=== PATIENT | female | born 1960 | race African-American/Black ===

== ENCOUNTER 2024-05-08 10:05 | Inpatient (IN) | payer OTHER ==
[2024-05-08] MEDS ORDERED: Ondansetron ODT 4 MG TAB PO PRN (13:35)
[2024-05-08] MEDS ORDERED: Dextrose 50% Abboject 50 ML SYRINGE SLOW IVP PRN (13:39)
[2024-05-08] MEDS ORDERED: Glucagon 1 MG/ML KIT IM PRN (13:39)
[2024-05-08] MEDS: Spironolactone 25 MG TAB PO SCH (20:34)
[2024-05-08] MEDS: Atorvastatin Calcium 20 MG TAB PO SCH (20:34)
[2024-05-08] MEDS: Sacubitril 24MG/Valsartan 26 MG TAB PO SCH (20:34)
[2024-05-08] MEDS ORDERED: Famotidine 20 MG TAB PO SCH (21:00)
[2024-05-09] MEDS: Insulin Lispro 100 UNIT/ML 10 ML VIAL SC PRN (05:39)
[2024-05-09] MEDS: FLU (Fluad Triv) TS24-25 (65UP)/MF59C/PF 45 MCG/0.5 ML Syringe IM ONE (08:21)
[2024-05-09] MEDS: Enoxaparin 40 MG (0.4 mL) SYRINGE SC SCH (08:22)
[2024-05-09] MEDS: Polyethylene Glycol 3350 17 GM Packet PO SCH (08:22)
[2024-05-09] MEDS: Lantus 1000 UNITS/10 ML VIAL SC SCH (08:22)
[2024-05-09] MEDS: Aspirin 81 mg Enteric Coated Tablet PO SCH (08:23)
[2024-05-09] MEDS: Pantoprazole DR 40 MG TAB PO SCH (08:23)
[2024-05-09] MEDS: Clopidogrel Bisulfate 75 MG TAB PO SCH (08:23)
[2024-05-09] MEDS: Hydrochlorothiazide 25 MG TAB PO SCH (08:23)
[2024-05-09] MEDS: Dapagliflozin Propanediol 10 MG TAB PO SCH (08:23)
[2024-05-09] MEDS: Cholecalciferol (Vitamin D3) 400 UNITS TAB PO SCH (08:23)
[2024-05-09] MEDS: Potassium Chloride 20 MEQ TAB PO SCH (08:23)
[2024-05-09] MEDS: Acetaminophen 325 MG TAB PO PRN (10:15)
[2024-05-09 17:32] LABS: #Eosinophils 0.2 thou/uL (0.0-0.7); #Lymphocytes 2.7 thou/uL (1.20-3.40); #Monocytes 0.6 thou/uL (0.11-0.59); #Neutrophils 2.2 thou/uL (1.40-6.50); %Basophils 0.7 % (0.0-1.0); %Eosinophils 2.9 % (0.0-10.0); %Lymphocytes 46.5 % (21.0-51.0); %Monocytes 10.8 % (0.0-10.0); %Neutrophils 39.2 % (42.0-75.0); Hematocrit 40.4 % (36.0-47.0); Hemoglobin 12.2 g/dL (12.0-16.0); Mean Corpuscular HGB CONC 30.2 g/dL (32.0-36.0); Mean Corpuscular Hemoglobin 27.9 pg (27.0-31.0); Mean Corpuscular Volume 92.2 fl (78.0-98.0); Mean Platelet Volume 8.4 fL (7.4-10.4); Platelet Count 358 10x3/uL (130-400); RBC Distribution Width 13.4 % (11.5-14.5); Red Blood Cell (RBC) Count 4.38 mill/uL (4.20-5.40); White Blood Cell (WBC) Count 5.7 10x3/uL (4.8-10.8)
[2024-05-09 17:47] LABS: ALT (SGPT) 25 U/L (8-55); AST (SGOT) 22 U/L (5-34); Albumin 2.3 g/dL (3.4-4.8); Alkaline Phosphatase 79 U/L (40-110); Anion Gap 14 mmol/L (10-20); BUN (Urea Nitrogen) 34 mg/dL (9.8-20.1); Bilirubin, Total 0.2 mg/dL (0.2-1.2); Calc. Creatinine Clearance 42 mL/min (70-130); Calcium 9.1 mg/dL (7.8-10.44); Carbon Dioxide 24 mmol/L (23-31); Chloride 103 mmol/L (98-107); Estimated GFR 31; Globulin 4.6 g/dL (2.4-3.5); Glucose 123 mg/dL (80-115); Potassium 4.3 mmol/L (3.5-5.1); Protein, Total 6.9 g/dL (5.8-8.1); Sodium 137 mmol/L (136-145)
[2024-05-09] MEDS: Nystatin 500,000 UNITS/5 ML UDCUP SSW SCH (17:58)
[2024-05-10] MEDS: Enoxaparin 30 MG (0.3 mL) SYRINGE SC SCH (08:52)
[2024-05-11 09:58] LABS: ALT (SGPT) 28 U/L (8-55); AST (SGOT) 21 U/L (5-34); Albumin 2.6 g/dL (3.4-4.8); Alkaline Phosphatase 89 U/L (40-110); Anion Gap 15 mmol/L (10-20); BUN (Urea Nitrogen) 33 mg/dL (9.8-20.1); Bilirubin, Total 0.2 mg/dL (0.2-1.2); Calc. Creatinine Clearance 42 mL/min (70-130); Calcium 9.7 mg/dL (7.8-10.44); Carbon Dioxide 20 mmol/L (23-31); Chloride 103 mmol/L (98-107); Estimated GFR 30; Globulin 5.2 g/dL (2.4-3.5); Glucose 225 mg/dL (80-115); Potassium 3.9 mmol/L (3.5-5.1); Protein, Total 7.8 g/dL (5.8-8.1); Sodium 134 mmol/L (136-145)
[2024-05-11] MEDS: Insulin Lispro 100 UNIT/ML 10 ML VIAL SC PRN (20:52)
[2024-05-12] MEDS: Sacubitril 24MG/Valsartan 26 MG TAB PO SCH (09:16)
[2024-05-12] MEDS: Lantus 1000 UNITS/10 ML VIAL SC SCH (09:38)
[2024-05-12 09:52] LABS: ALT (SGPT) 25 U/L (8-55); AST (SGOT) 17 U/L (5-34); Albumin 2.6 g/dL (3.4-4.8); Alkaline Phosphatase 81 U/L (40-110); Anion Gap 12 mmol/L (10-20); BUN (Urea Nitrogen) 38 mg/dL (9.8-20.1); Bilirubin, Total 0.2 mg/dL (0.2-1.2); Calc. Creatinine Clearance 37 mL/min (70-130); Calcium 9.6 mg/dL (7.8-10.44); Carbon Dioxide 20 mmol/L (23-31); Chloride 105 mmol/L (98-107); Estimated GFR 26; Globulin 4.7 g/dL (2.4-3.5); Glucose 243 mg/dL (80-115); Potassium 4.1 mmol/L (3.5-5.1); Protein, Total 7.3 g/dL (5.8-8.1); Sodium 133 mmol/L (136-145)
[2024-05-13 07:08] LABS: ALT (SGPT) 25 U/L (8-55); AST (SGOT) 18 U/L (5-34); Albumin 2.7 g/dL (3.4-4.8); Alkaline Phosphatase 85 U/L (40-110); Anion Gap 16 mmol/L (10-20); BUN (Urea Nitrogen) 42 mg/dL (9.8-20.1); Bilirubin, Total 0.2 mg/dL (0.2-1.2); Calc. Creatinine Clearance 35 mL/min (70-130); Calcium 9.4 mg/dL (7.8-10.44); Carbon Dioxide 20 mmol/L (23-31); Chloride 106 mmol/L (98-107); Estimated GFR 24; Globulin 4.3 g/dL (2.4-3.5); Glucose 235 mg/dL (80-115); Sodium 138 mmol/L (136-145)
[2024-05-13] MEDS: Polyethylene Glycol 3350 17 GM Packet PO PRN (08:57)
[2024-05-13] MEDS: Lantus 1000 UNITS/10 ML VIAL SC SCH (08:58)
[2024-05-13] MEDS: Bisacodyl 5 MG TAB PO SCH ×2 (14:32→14:45)
[2024-05-14] MEDS: Lantus 1000 UNITS/10 ML VIAL SC SCH (08:22)
[2024-05-14] MEDS: Bisacodyl 5 MG TAB PO SCH (08:23)
[2024-05-14 10:26] LABS: Anion Gap 15 mmol/L (10-20); BUN (Urea Nitrogen) 40 mg/dL (9.8-20.1); Calc. Creatinine Clearance 40 mL/min (70-130); Calcium 9.7 mg/dL (7.8-10.44); Carbon Dioxide 20 mmol/L (23-31); Chloride 104 mmol/L (98-107); Estimated GFR 29; Glucose 242 mg/dL (80-115); Potassium 3.8 mmol/L (3.5-5.1); Sodium 135 mmol/L (136-145)
[2024-05-14] MEDS: Fluconazole 100 MG TAB PO SCH (13:25)
[2024-05-14] MEDS: Bisacodyl 10 MG SUPP PR PRN (19:01)
[2024-05-14] MEDS: Senokot S 8.6-50 MG TAB PO SCH (20:43)
[2024-05-15 07:58] LABS: #Eosinophils 0.1 thou/uL (0.0-0.7); #Lymphocytes 2.1 thou/uL (1.20-3.40); #Monocytes 0.6 thou/uL (0.11-0.59); #Neutrophils 3.9 thou/uL (1.40-6.50); %Basophils 0.6 % (0.0-1.0); %Eosinophils 2.2 % (0.0-10.0); %Lymphocytes 31.3 % (21.0-51.0); %Monocytes 9.1 % (0.0-10.0); %Neutrophils 56.9 % (42.0-75.0); Hematocrit 41.2 % (36.0-47.0); Hemoglobin 12.5 g/dL (12.0-16.0); Mean Corpuscular HGB CONC 30.4 g/dL (32.0-36.0); Mean Corpuscular Hemoglobin 27.9 pg (27.0-31.0); Mean Corpuscular Volume 91.7 fl (78.0-98.0); Mean Platelet Volume 9.6 fL (7.4-10.4); Platelet Count 320 10x3/uL (130-400); RBC Distribution Width 13.5 % (11.5-14.5); White Blood Cell (WBC) Count 6.8 10x3/uL (4.8-10.8)
[2024-05-15] MEDS: Polyethylene Glycol 3350 17 GM Packet PO SCH (08:10)
[2024-05-15 08:18] LABS: ALT (SGPT) 16 U/L (8-55); AST (SGOT) 9 U/L (5-34); Albumin 2.6 g/dL (3.4-4.8); Alkaline Phosphatase 84 U/L (40-110); Anion Gap 14 mmol/L (10-20); BUN (Urea Nitrogen) 47 mg/dL (9.8-20.1); Bilirubin, Total 0.2 mg/dL (0.2-1.2); Calc. Creatinine Clearance 40 mL/min (70-130); Calcium 9.8 mg/dL (7.8-10.44); Carbon Dioxide 20 mmol/L (23-31); Chloride 107 mmol/L (98-107); Estimated GFR 29; Globulin 4.6 g/dL (2.4-3.5); Glucose 200 mg/dL (80-115); Magnesium 2.3 mg/dL (1.6-2.6); Potassium 3.3 mmol/L (3.5-5.1); Protein, Total 7.2 g/dL (5.8-8.1); Sodium 138 mmol/L (136-145)
[2024-05-15] MEDS ORDERED: Polyethylene Glycol 3350 17 GM Packet PO PRN (08:31)
[2024-05-15] MEDS ORDERED: Senokot S 8.6-50 MG TAB PO PRN (08:31)
[2024-05-15] MEDS: Fluconazole 100 MG TAB PO SCH (08:42)
[2024-05-15] MEDS: Potassium Chloride 10 MEQ TAB PO SCH (09:33)
[2024-05-15] MEDS: Lantus 1000 UNITS/10 ML VIAL SC SCH ×2 (13:14→13:18)
[2024-05-16 07:01] LABS: #Eosinophils 0.2 thou/uL (0.0-0.7); #Lymphocytes 2.1 thou/uL (1.20-3.40); #Monocytes 0.5 thou/uL (0.11-0.59); #Neutrophils 2.8 thou/uL (1.40-6.50); %Basophils 0.6 % (0.0-1.0); %Eosinophils 3.1 % (0.0-10.0); %Lymphocytes 37.5 % (21.0-51.0); %Monocytes 8.1 % (0.0-10.0); %Neutrophils 50.6 % (42.0-75.0); Hematocrit 39.8 % (36.0-47.0); Hemoglobin 12.5 g/dL (12.0-16.0); Mean Corpuscular HGB CONC 31.3 g/dL (32.0-36.0); Mean Corpuscular Hemoglobin 28.3 pg (27.0-31.0); Mean Corpuscular Volume 90.3 fl (78.0-98.0); Mean Platelet Volume 9.5 fL (7.4-10.4); Platelet Count 313 10x3/uL (130-400); RBC Distribution Width 13.3 % (11.5-14.5); Red Blood Cell (RBC) Count 4.41 mill/uL (4.20-5.40); White Blood Cell (WBC) Count 5.5 10x3/uL (4.8-10.8)
[2024-05-16 07:19] LABS: Anion Gap 14 mmol/L (10-20); BUN (Urea Nitrogen) 45 mg/dL (9.8-20.1); Calc. Creatinine Clearance 39 mL/min (70-130); Calcium 9.7 mg/dL (7.8-10.44); Carbon Dioxide 17 mmol/L (23-31); Chloride 111 mmol/L (98-107); Estimated GFR 29; Glucose 209 mg/dL (80-115); Potassium 3.7 mmol/L (3.5-5.1); Sodium 138 mmol/L (136-145)
[2024-05-16 12:08] LABS: Hemoglobin A1c 6.4 % (4.0-6.0)
[2024-05-17 11:42] LABS: #Basophils 0.1 thou/uL (0.0-0.2); #Eosinophils 0.1 thou/uL (0.0-0.7); #Monocytes 0.4 thou/uL (0.11-0.59); #Neutrophils 2.6 thou/uL (1.40-6.50); %Basophils 1.4 % (0.0-1.0); %Eosinophils 2.9 % (0.0-10.0); %Lymphocytes 38.6 % (21.0-51.0); %Monocytes 7.9 % (0.0-10.0); %Neutrophils 49.2 % (42.0-75.0); Hematocrit 42.2 % (36.0-47.0); Hemoglobin 13.1 g/dL (12.0-16.0); Mean Corpuscular HGB CONC 30.9 g/dL (32.0-36.0); Mean Corpuscular Hemoglobin 28.1 pg (27.0-31.0); Mean Corpuscular Volume 90.9 fl (78.0-98.0); Mean Platelet Volume 9.3 fL (7.4-10.4); Platelet Count 276 10x3/uL (130-400); RBC Distribution Width 13.7 % (11.5-14.5); Red Blood Cell (RBC) Count 4.65 mill/uL (4.20-5.40); White Blood Cell (WBC) Count 5.2 10x3/uL (4.8-10.8)
[2024-05-17 11:44] VITALS: BMI 86.9
[2024-05-17 11:57] LABS: ALT (SGPT) 17 U/L (8-55); AST (SGOT) 12 U/L (5-34); Albumin 2.6 g/dL (3.4-4.8); Alkaline Phosphatase 85 U/L (40-110); Anion Gap 14 mmol/L (10-20); BUN (Urea Nitrogen) 41 mg/dL (9.8-20.1); Bilirubin, Total 0.2 mg/dL (0.2-1.2); Calc. Creatinine Clearance 41 mL/min (70-130); Calcium 9.6 mg/dL (7.8-10.44); Carbon Dioxide 17 mmol/L (23-31); Chloride 112 mmol/L (98-107); Estimated GFR 30; Globulin 4.8 g/dL (2.4-3.5); Glucose 175 mg/dL (80-115); Potassium 4.4 mmol/L (3.5-5.1); Protein, Total 7.4 g/dL (5.8-8.1); Sodium 139 mmol/L (136-145)
[2024-05-20 04:22] VITALS: BMI 74.0
[2024-05-20 07:40] LABS: ALT (SGPT) 15 U/L (8-55); AST (SGOT) 9 U/L (5-34); Albumin 2.7 g/dL (3.4-4.8); Alkaline Phosphatase 85 U/L (40-110); Anion Gap 14 mmol/L (10-20); BUN (Urea Nitrogen) 40 mg/dL (9.8-20.1); Bilirubin, Total 0.2 mg/dL (0.2-1.2); Calc. Creatinine Clearance 43 mL/min (70-130); Calcium 9.9 mg/dL (7.8-10.44); Carbon Dioxide 17 mmol/L (23-31); Chloride 115 mmol/L (98-107); Estimated GFR 33; Globulin 4.2 g/dL (2.4-3.5); Glucose 205 mg/dL (80-115); Protein, Total 6.9 g/dL (5.8-8.1); Sodium 142 mmol/L (136-145)
[2024-05-21] MEDS: Spironolactone 25 MG TAB PO SCH (07:34)
[2024-05-21] MEDS: Lantus 1000 UNITS/10 ML VIAL SC SCH (09:10)
[2024-05-22 05:20] VITALS: BP 126/66; TEMP 97.8
[2024-05-22] MEDS ORDERED: Ergocalciferol 1.25 MG(50,000 UNITS) CAP PO SCH (09:00)
[2024-05-22] MEDS ORDERED: Enoxaparin 40 MG (0.4 mL) SYRINGE SC SCH (09:00)
== END 2024-05-22 03:30 | disposition short-term general hospital (02) | DRG 947 ==
LOC: NAV ACUTE 16:46
PROVIDERS: ADMIT Student in an Organized Health Care Education/Training Program; ATTEND Student in an Organized Health Care Education/Training Program
DX: R53.81 Other malaise (principal); I63.9 Cerebral infarction, unspecified; I13.0 Hypertensive heart and chronic kidney disease with heart failure and stage 1 through stage 4 chronic kidney disease, or unspecified chronic kidney disease; I50.42 Chronic combined systolic (congestive) and diastolic (congestive) heart failure; E11.22 Type 2 diabetes mellitus with diabetic chronic kidney disease; E78.5 Hyperlipidemia, unspecified; I25.2 Old myocardial infarction; Z89.612 Acquired absence of left leg above knee; Z89.611 Acquired absence of right leg above knee; Z98.890 Other specified postprocedural states; F17.210 Nicotine dependence, cigarettes, uncomplicated; N18.9 Chronic kidney disease, unspecified; R13.12 Dysphagia, oropharyngeal phase; R47.81 Slurred speech; R29.810 Facial weakness; S14.3XXA Injury of brachial plexus, initial encounter
CPT/HCPCS: 36415; 36416; 70450; 80048; 80053; 83036; 83735; 84484; 85025; 85610; 85730; 93005; 94760; J1650; J1815

== ENCOUNTER 2024-05-22 03:39 | Emergency (ER) | payer OTHER ==
[2024-05-22 03:48] LABS: #Basophils 0.1 thou/uL (0.0-0.2); #Eosinophils 0.1 thou/uL (0.0-0.7); #Lymphocytes 2.6 thou/uL (1.20-3.40); #Monocytes 0.6 thou/uL (0.11-0.59); #Neutrophils 4.2 thou/uL (1.40-6.50); %Basophils 1.2 % (0.0-1.0); %Eosinophils 1.6 % (0.0-10.0); %Lymphocytes 34.4 % (21.0-51.0); %Monocytes 7.4 % (0.0-10.0); %Neutrophils 55.4 % (42.0-75.0); Hemoglobin 13.4 g/dL (12.0-16.0); Mean Corpuscular Hemoglobin 28.9 pg (27.0-31.0); Mean Corpuscular Volume 90.4 fl (78.0-98.0); Mean Platelet Volume 9.8 fL (7.4-10.4); Platelet Count 291 10x3/uL (130-400); RBC Distribution Width 13.5 % (11.5-14.5); Red Blood Cell (RBC) Count 4.64 mill/uL (4.20-5.40); White Blood Cell (WBC) Count 7.5 10x3/uL (4.8-10.8)
[2024-05-22 04:08] LABS: Troponin I 0.013 ng/mL (< 0.028)
[2024-05-22 04:12] LABS: INR-International Normal Ratio 1.1; Prothrombin Time 14.6 sec (12.0-14.7)
[2024-05-22 04:13] LABS: PTT 31.1 sec (22.9-36.1)
[2024-05-22 04:15] LABS: ALT (SGPT) 14 U/L (8-55); AST (SGOT) 10 U/L (5-34); Albumin 2.9 g/dL (3.4-4.8); Alkaline Phosphatase 94 U/L (40-110); Anion Gap 15 mmol/L (10-20); BUN (Urea Nitrogen) 41 mg/dL (9.8-20.1); Bilirubin, Total 0.2 mg/dL (0.2-1.2); Calc. Creatinine Clearance 0 mL/min (70-130); Calcium 10.2 mg/dL (7.8-10.44); Carbon Dioxide 17 mmol/L (23-31); Chloride 113 mmol/L (98-107); Estimated GFR 26; Globulin 4.9 g/dL (2.4-3.5); Glucose 182 mg/dL (80-115); Potassium 3.9 mmol/L (3.5-5.1); Protein, Total 7.8 g/dL (5.8-8.1); Sodium 141 mmol/L (136-145)
[2024-05-22] MEDS ORDERED: Aspirin 300 MG Suppository ONE (04:19)
== END 2024-05-22 06:08 | disposition home or self-care (01) ==
LOC: NAV ERS 03:39
DX: R47.1 Dysarthria and anarthria (principal); E11.9 Type 2 diabetes mellitus without complications; I10 Essential (primary) hypertension; E78.5 Hyperlipidemia, unspecified; Z79.4 Long term (current) use of insulin; Z79.899 Other long term (current) drug therapy; Z79.82 Long term (current) use of aspirin
CPT/HCPCS: 36416; 80053; 84484; 85025; 85610; 85730; 93005; 94760